=== PATIENT | male | born 1965 | race African-American/Black ===

== ENCOUNTER 2018-04-11 16:23 | Emergency (ER) | payer SELFPAY ==
[2018-04-11 16:30] VITALS: BP 166/103
--- NOTE | 2018-04-11 16:40 | ER Report ---
History and Physical Time Seen By MD: 16:41 Hx. of Stated Complaint: LOWER RIGHT BACK PAIN SHOOTING DOWN RIGHT LEG SINCE LAST WEDNESDAY. HPI/ROS CHIEF COMPLAINT: Back pain that radiates down the right leg HISTORY OF PRESENT ILLNESS: 53-year-old male patient presents to emergency room with complaint of back pain that radiates down the right leg. Patient states that he has been having this pain for approximately 9 days now. Patient states that he's recently moved from [place] and noted that his back started to hurt when he was moving. He states that he did the majority to move by himself. He states that it seems to have persisted. He did see a chiropractor here in town, who tried a manipulation as well as a herbal muscle relaxer. He states most relaxer seemed to help initially but has not helped since. Patient states that his pain seems to be worse when he is having a bowel movement in the morning. He denies having any fevers, chills, nausea, vomiting or diarrhea. Patient states he has some tingling to the back of the right leg. He denies having any numbness tingling to the foot today. He states the tingling seems to and around the knee. Patient states that ibuprofen seems to help. He states he's had this previously proximal like 20 years ago and saw a specialist who used a massager and in for 5 visits he was feeling much better. REVIEW OF SYSTEMS: Respiratory: No cough, no dyspnea. Cardiovascular: No chest pain, no palpitations. Gastrointestinal: No vomiting, no abdominal pain. Musculoskeletal: As noted above Allergies: Coded Allergies: No Known Drug Allergies (Unverified , 04/11/18) Home Meds Active Scripts Prednisone (PREDNISONE) 20 Mg Tablet, 40 MG PO DAILY, #8 TAB Prov:KENYON NINO 04/11/18 Hydrocodone Bit/Acetaminophen (HYDROCODON-ACETAMINOPHEN 5-325) 1 Each Tablet, 1 EACH PO Q4-6H PRN for PAIN, #12 TAB Prov:KENYON NINO 04/11/18 Cyclobenzaprine Hcl (CYCLOBENZAPRINE HCL) 10 Mg Tablet, 10 MG PO TID PRN for MUSCLE SPASMS, #15 TAB Prov:KENYON NINO 04/11/18 Past Medical/Surgical History Patient has a past medical history of psoriasis. Patient denies any surgical history. Reviewed Nurses Notes: Yes Constitutional Vital Sign - Last 24 Hours 04/11/18 04/11/18 04/11/18 04/11/18 16:29 16:30 16:38 16:53 Temp 98.0 Pulse 86 86 86 Resp 18 B/P (MAP) 166/103 166/103 (124) Pulse Ox 91 92 92 04/11/18 04/11/18 04/11/18 04/11/18 17:23 17:38 17:53 18:08 Pulse 81 96 80 81 Pulse Ox 93 95 91 91 04/11/18 04/11/18 04/11/18 04/11/18 18:20 18:35 18:50 19:05 Pulse 77 81 77 85 Pulse Ox 93 94 94 94 Physical Exam General Appearance: The patient is alert, has no immediate need for airway protection and no current signs of toxicity. Respiratory: Chest is non tender, lungs are clear to auscultation. Cardiac: regular rate and rhythm Gastrointestinal: Abdomen is soft and non tender, no masses, bowel sounds normal. Musculoskeletal: Neck: Neck is supple and non tender. Back: Patient does have some tenderness to the right side of the low back, pain seems to worse along the SI joint. Extremities have full range of motion and are non tender. Skin: No rashes or lesions. DIFFERENTIAL DIAGNOSIS: After history and physical exam differential diagnosis was considered for back pain including but not limited to muscular pain, herniated disc, spine fracture, intra-abdominal causes and urinary tract infection. Medical Decision Making EKG/Imaging Imaging LUMBAR SPINE 4 VIEWS INDICATION: Back pain for one week. No 2 new home last week. COMPARISON: None available FINDINGS: 4 views of the lumbar spine. There are 5 nonrib-bearing lumbar vertebral bodies. The vertebral bodies are aligned. No compression fractures, bony lesions or spondylolysis. Mild degenerative changes including disc space narrowing, osteophytes and facet arthropathy. This is more prominent the L5-S1 level. The endplates are maintained. Pedicles well seen. Soft tissues are unremarkable. IMPRESSION: Degenerative changes without acute abnormality. Report Dictated By: Keven Lazo at 04/11/2018 6:47 PM Report E-Signed By: Keven Lazo at 04/11/2018 6:49 PM SACROILIAC JOINTS 3 OR > VIEWS INDICATION: Pain. COMPARISON: None available FINDINGS: 3 views of the SI joints. SI joints are symmetric. No widening, narrowing, sclerosis or osteophytes are appreciated. Sacrum is intact without fracture or dislocation. No bony lesions. The visualized pelvis is intact. Soft tissues are unremarkable. IMPRESSION: Normal exam. Report Dictated By: Keven Lazo at 04/11/2018 6:49 PM Report E-Signed By: Keven Lazo at 04/11/2018 6:50 PM ED Course/Re-evaluation ED Course Patient was admitted to exam room, history and physical were obtained. Differential diagnoses were considered. On examination patient does have ten derness to the right side of the low back as well as down into the SI joint. X- rays done of the lumbar spine as well as the SI joints. X-rays showed no acute fractures, no subluxation. I discussed the findings with the patient. I believe he is having a flareup of his sciatica. We will go ahead and treat him with a limited supply of pain medication, prednisone and a muscle relaxer. Patient is to follow-up with his primary care provider in the next week. He is return to emergency room if condition worsens. I anticipate that we will see improvement of his symptoms within the next 1-2 days. Patient verbalized understanding and agreement with plan. Decision to Disposition Date: Apr 11, 2018 Decision to Disposition Time: 19:00 Depart Departure Latest Vital Signs Vital Signs Date Time Temp Pulse Resp B/P (MAP) Pulse Ox O2 Delivery O2 Flow Rate FiO2 04/11/18 19:05 85 94 04/11/18 16:30 166/103 (124) 04/11/18 16:29 98.0 18 Impression: Primary Impression: Sciatica Condition: Improved Disposition: HOME OR SELF-CARE New Scripts Prednisone (PREDNISONE) 20 Mg Tablet 40 MG PO DAILY, #8 TAB Prov: KENYON NINO 04/11/18 Hydrocodone Bit/Acetaminophen (HYDROCODON-ACETAMINOPHEN 5-325) 1 Each Tablet 1 EACH PO Q4-6H PRN for PAIN, #12 TAB Prov: KENYON NINO 04/11/18 Cyclobenzaprine Hcl (CYCLOBENZAPRINE HCL) 10 Mg Tablet 10 MG PO TID PRN for MUSCLE SPASMS, #15 TAB Prov: KENYON NINO 04/11/18 Patient Instructions: Sciatica (ED) Additional Instructions: Limit activity by pain. Get plenty of rest. Increase low impact aerobic activity; walking, to help loosen up those muscles. Take the medication as prescribed. Follow up with a primary care provider in the next 1-2 weeks. Return to the ER if condition worsens. Problem Qualifiers Primary Impression: Sciatica Laterality: right Qualified Codes: M54.31 - Sciatica, right side KENYON NINO Apr 11, 2018 16:40
--- NOTE | 2018-04-11 18:53 | RADIOLOGY IMAGING REPORT ---
FACILITY: [facility] PATIENT NAME: Austin Rosado : 1965 MR: [id number] V: [id number] EXAM DATE: ORDERING PHYSICIAN: KENYON NINO TECHNOLOGIST: Location: [facility] [place] Patient: Austin Rosado : 1965 Visit/Account:[id number] Date of Sevice: 04/11/2018 SACROILIAC JOINTS 3 OR > VIEWS INDICATION: Pain. COMPARISON: None available FINDINGS: 3 views of the SI joints. SI joints are symmetric. No widening, narrowing, sclerosis or o steophytes are appreciated. Sacrum is intact without fracture or dislocation. No bony lesions. The vi sualized pelvis is intact. Soft tissues are unremarkable. IMPRESSION: Normal exam. Report Dictated By: Keven Lazo at 04/11/2018 6:49 PM Report E-Signed By: Keven Lazo at 04/11/2018 6:50 PM WSN:[id number]
--- NOTE | 2018-04-11 18:53 | RADIOLOGY IMAGING REPORT ---
FACILITY: [facility] PATIENT NAME: Austin Rosado : 1965 MR: [id number] V: [id number] EXAM DATE: ORDERING PHYSICIAN: KENYON NINO TECHNOLOGIST: Location: [facility] [place] Patient: Austin Rosado : 1965 Visit/Account:[id number] Date of Sevice: 04/11/2018 LUMBAR SPINE 4 VIEWS INDICATION: Back pain for one week. No 2 new home last week. COMPARISON: None available FINDINGS: 4 views of the lumbar spine. There are 5 nonrib-bearing lumbar vertebral bodies. The vert ebral bodies are aligned. No compression fractures, bony lesions or spondylolysis. Mild degenerative changes including disc space narrowing, osteophytes and facet arthropathy. This is more prominent the L5-S1 level. The endplates are maintained. Pedicles well seen. Soft tissues are unremarkable. IMPRESSION: Degenerative changes without acute abnormality. Report Dictated By: Keven Lazo at 04/11/2018 6:47 PM Report E-Signed By: Keven Lazo at 04/11/2018 6:49 PM WSN:[id number]
[2018-04-11] MEDS ORDERED: HYDR-385 PO (18:57)
[2018-04-11] MEDS ORDERED: PRED20TA6 PO (18:57)
[2018-04-11] MEDS ORDERED: CYCL10TA29 PO (18:57)
[2018-04-11] MEDS ORDERED: predniSONE 20 MG TAB PO ONE (19:00)
[2018-04-11] MEDS ORDERED: CYCLOBENZAPRINE HCL 10 MG TH PO ONE (19:00)
[2018-04-11] MEDS ORDERED: ACET/HYDROC 5/325MG TH ER ONLY 2 TAB/BOTTLE PO ONE (19:00)
== END 2018-04-11 19:20 | disposition home or self-care (01) ==
LOC: ER 16:42
DX: M54.31 Sciatica, right side (principal)
CPT/HCPCS: 72120; 72202; 99284; J7512

== ENCOUNTER 2018-07-17 09:20 | Emergency (ER) | payer OTHER ==
[~2018-07-17 09:20] MED LIST: CYCL10TA29 PO; HYDR-385 PO; PRED20TA6 PO
--- NOTE | 2018-07-17 09:38 | ER Report ---
History and Physical Time Seen By MD: 09:32 Hx. of Stated Complaint: PT REPORTS SCIATIC NERVE PAIN X 2 WEEKS BUT CONTINUES TO GET WORSE. HPI/ROS CHIEF COMPLAINT: Low back pain with sciatica HISTORY OF PRESENT ILLNESS: Patient is a 53-year-old male who presents to the emergency department with complaint of lower back pain and right leg pain. Patient thinks that this is an exacerbation of sciatica. Patient is barely into [place] moving here and this past April does not have a primary care provider. Patient denies any new traumatic injury. He denies fevers or chills. He denies any retention or incontinence of urine or stool. He denies any saddle anesthesia. Allergies: Coded Allergies: No Known Drug Allergies (Unverified , 07/17/18) Home Meds Active Scripts Prednisone (PREDNISONE) 20 Mg Tablet, 20 MG PO QDAY for 5 Days, #5 TAB 0 Refills first dose on 07/18/18 then one daily until complete Prov:PEG BRITO MD 07/17/18 Methocarbamol (ROBAXIN-750) 750 Mg Tablet, 1500 MG PO TID for Muscle Relaxant, #30 TAB 0 Refills Prov:PEG BRITO MD 07/17/18 Hydrocodone Bit/Acetaminophen (HYDROCODON-ACETAMINOPHEN 5-325) 1 Each Tablet, 1 EACH PO Q4-6H PRN for PAIN, #15 TAB 0 Refills TAKE ONE TABLET BY MOUTH EVERY 4-6 HOURS NEEDED FOR PAIN Prov:PEG BRITO MD 07/17/18 Discontinued Scripts Prednisone (PREDNISONE) 20 Mg Tablet, 40 MG PO DAILY, #8 TAB Prov:KENYON NINO 04/11/18 Hydrocodone Bit/Acetaminophen (HYDROCODON-ACETAMINOPHEN 5-325) 1 Each Tablet, 1 EACH PO Q4-6H PRN for PAIN, #12 TAB Prov:KENYON NINO 04/11/18 Cyclobenzaprine Hcl (CYCLOBENZAPRINE HCL) 10 Mg Tablet, 10 MG PO TID PRN for MUSCLE SPASMS, #15 TAB Prov:KENYON NINO 04/11/18 Past Medical/Surgical History Sciatica Constitutional Vital Sign - Last 24 Hours 07/17/18 09:24 Temp 97.9 Pulse 95 Resp 18 B/P (MAP) 152/100 Pulse Ox 93 O2 Delivery Room Air Physical Exam General appearance: alert no distress. Back: Thoracic spine has no spinal or paraspinal tenderness to palpation. Lumbar spine has no spinal tenderness moderate paraspinal tenderness Gastroinal: Abdomen is soft, non tender, no masses.. Skin: No lesions and no rashes. Vascular: Normal capillary refill and pulses to feet. Neurological: Motor function: leg strength normal and symmetric for both legs Sensory function: normal for all leg dermatomes. Straight leg raise negative to 70 degrees. Reflexes normal bilaterally on legs. [ ] DIFFERENTIAL DIAGNOSIS: After history and physical exam differential diagnosis was considered for back pain including muscular strain, herniated disc, intra- abdominal and renal causes. Medical Decision Making ED Course/Re-evaluation ED Course 07/17/2018 9:39:11 am he shouldn't with sciatica flare. Plan will be IM Toradol oral prednisone and oral Robaxin. We'll send a prescription for short course of oral pain medication. At the [place] prescription index of was checked last prescription for controlled substance was April 2018 and no other scripts were noted. Decision to Disposition Date: Jul 17, 2018 Decision to Disposition Time: 09:39 Depart Departure Latest Vital Signs Vital Signs Date Time Temp Pulse Resp B/P (MAP) Pulse Ox O2 Delivery O2 Flow Rate FiO2 07/17/18 09:24 97.9 95 18 152/100 93 Room Air Impression: Primary Impression: Sciatica Condition: Improved Disposition: HOME OR SELF-CARE New Scripts Prednisone (PREDNISONE) 20 Mg Tablet 20 MG PO QDAY for 5 Days, #5 TAB 0 Refills first dose on 07/18/18 then one daily until complete Prov: PEG BRITO MD 07/17/18 Methocarbamol (ROBAXIN-750) 750 Mg Tablet 1500 MG PO TID for Muscle Relaxant, #30 TAB 0 Refills Prov: PGE BRITO MD 07/17/18 Hydrocodone Bit/Acetaminophen (HYDROCODON-ACETAMINOPHEN 5-325) 1 Each Tablet 1 EACH PO Q4-6H PRN for PAIN, #15 TAB 0 Refills TAKE ONE TABLET BY MOUTH EVERY 4-6 HOURS NEEDED FOR PAIN Prov: PEG BRITO MD 07/17/18 Patient Instructions: Sciatica (DC) Problem Qualifiers Primary Impression: Sciatica Laterality: right Qualified Codes: M54.31 - Sciatica, right side PEG BRITO MD Jul 17, 2018 09:38
[2018-07-17] MEDS ORDERED: METH-543 PO (09:41)
[2018-07-17] MEDS ORDERED: LOR5/325 PO (09:41)
[2018-07-17] MEDS ORDERED: PRED20TA6 PO (09:41)
[2018-07-17] MEDS: METHOCARBAMOL 500 MG TAB PO ONE (09:45)
[2018-07-17] MEDS: predniSONE 20 MG TAB PO ONE (09:45)
[2018-07-17] MEDS: KETOROLAC 60 MG/2 ML VIAL IM ONE (09:49)
[2018-07-17 09:50] VITALS: BP 141/90
== END 2018-07-17 09:55 | disposition home or self-care (01) ==
LOC: ER 09:35
DX: M54.31 Sciatica, right side (principal)
CPT/HCPCS: 96372; 99283; J1885; J7512

== ENCOUNTER 2018-08-11 14:09 | Emergency (ER) | payer OTHER ==
[~2018-08-11 14:09] MED LIST changes: +LOR5/325 PO; +METH-543 PO; +NAPR500T31 PO; +TRAM-420 PO
[2018-08-11 16:13] VITALS: BP 168/111
[2018-08-11] MEDS ORDERED: CYCL10TA29 PO (16:43)
[2018-08-11] MEDS ORDERED: PRED20TA6 PO (16:43)
[2018-08-11] MEDS ORDERED: methylPREDNIS SUCC 125 MG/2ML IM ONE (16:45)
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
[2018-08-11] MEDS ORDERED: HYDR-385 PO (16:48)
== END 2018-08-11 17:11 | disposition home or self-care (01) ==
LOC: ER 16:12
DX: M54.31 Sciatica, right side (principal)
CPT/HCPCS: 96372; 99283; J2930

== ENCOUNTER → 2018-08-22 | Outpatient (CLI) | payer OTHER ==
[~2018-08-22] MED LIST changes: +LISI-362 PO; +MELO-207 PO
[2018-08-22 09:35] LABS: PLATELET COUNT, AUTOMATED 280 K/uL (150-450)
[2018-08-22 09:49] LABS: LDL CHOLESTEROL 122 mg/dl
== END ==
LOC: LAB 09:12
PROVIDERS: ATTEND Internal Medicine
DX: M54.31 Sciatica, right side (principal); L40.9 Psoriasis, unspecified; I10 Essential (primary) hypertension; R73.9 Hyperglycemia, unspecified
CPT/HCPCS: 36415; 81001; 82040; 82247; 82310; 82374; 82435; 82465; 82565; 82947; 83036; 83718; 84075; 84132; 84153; 84155; 84295; 84443; 84450; 84460; 84478; 84520; 85025

== ENCOUNTER 2018-08-25 13:21 | Emergency (ER) | payer OTHER ==
--- NOTE | 2018-08-25 13:22 | ER Report ---
History and Physical Time Seen By MD: 13:22 HPI/ROS CHIEF COMPLAINT: Back pain and sciatica. HISTORY OF PRESENT ILLNESS: Patient is a 53-year-old male who moved to [place] this past has been seen approximately a half dozen times in the emergency department and also by his primary care provider for Z of sciatica that usually come on after a long plane ride or passing a hard stool. Patient is getting physical therapy which is helping. He states that he actually was pain-free this morning and was exercising. States later that morning he had a bowel movement and now is in severe pain again. Patient has had x-ray imaging of the back but no other studies. [place] prescription database was reviewed and patient had only prescriptions that were prescribed by either his primary care provider or provider from this emergency department. She denies saddle anesthesia. Reports constipation with bowel movements but no incontinence or retention of urine or stool. REVIEW OF SYSTEMS: Musculoskeletal: Back pain GI: Constipation Allergies: Coded Allergies: No Known Drug Allergies (Unverified , 08/11/18) Home Meds Active Scripts Oxycodone Hcl/Acetaminophen (PERCOCET 5-325 MG TABLET) 1 Each Tablet, 1 EACH PO Q4H for PAIN, #15 TAB 0 Refills Prov:PEG BRITO MD 08/25/18 Methocarbamol (ROBAXIN-750) 750 Mg Tablet, 1500 MG PO QID for Muscle Relaxant, #30 TAB 0 Refills Prov:PEG BRITO MD 08/25/18 Meloxicam (MELOXICAM) 15 Mg Tablet, 15 MG PO QDAY PRN for pain, #30 TAB 1 Refill Prov:FLOWER QUINTERO MD 08/22/18 Lisinopril (LISINOPRIL) 10 Mg Tablet, 10 MG PO QDAY, #30 TAB 3 Refills Prov:FLOWER QUINTERO MD 08/22/18 Cyclobenzaprine Hcl (CYCLOBENZAPRINE HCL) 10 Mg Tablet, 10 MG PO TID PRN for MUSCLE SPASMS, #30 TAB Prov:FLOWER QUINTERO MD 08/22/18 Reported Medications Hydrocodone Bit/Acetaminophen (HYDROCODON-ACETAMINOPHEN 5-325) 1 Each Tablet, 1 EACH PO Q4H, TAB 08/25/18 Discontinued Scripts Hydrocodone Bit/Acetaminophen (HYDROCODON-ACETAMINOPHEN 5-325) 1 Each Tablet, 1 EACH PO Q4-6H PRN for PAIN, #12 TAB Prov:KENYON NINO LIVESTOCK INSPECTOR 08/11/18 Prednisone (PREDNISONE) 20 Mg Tablet, 40 MG PO DAILY, #10 TAB Prov:KENYON NINO LIVESTOCK INSPECTOR 08/11/18 Past Medical/Surgical History Sciatica Smoking Status: Former Smoker Exposure to Second Hand Smoke?: No Constitutional Vital Sign - Last 24 Hours 08/25/18 13:25 Temp 97.7 Pulse 100 Resp 22 B/P (MAP) 147/96 Pulse Ox 95 O2 Delivery Room Air Physical Exam General appearance: Patient appears uncomfortable; prefers to lay on left side Back: Thoracic spine has no spinal or paraspinal tenderness to palpation. Lumbar spine has no spinal tenderness moderateparaspinal tenderness Gastroinal: Abdomen is soft, non tender, no masses.. Skin: No lesions and no rashes. [ ] DIFFERENTIAL DIAGNOSIS: After history and physical exam differential diagnosis was considered for back pain including muscular strain, herniated disc, intra- abdominal and renal causes. Medical Decision Making ED Course/Re-evaluation ED Course 08/25/2018 2:02:36 pm he had initially discussed with patient about obtaining an MRI at this point since his symptoms seem to be recurring. Feel he should also follow up with an orthopedist so they can evaluate him for his back pain. Patient states this time he would rather follow up with his primary care provider to get the MRI. I will prescribe a short course of oxycodone and Robaxin Decision to Disposition Date: Aug 25, 2018 Decision to Disposition Time: 14:03 Depart Departure Latest Vital Signs Vital Signs Date Time Temp Pulse Resp B/P (MAP) Pulse Ox O2 Delivery O2 Flow Rate FiO2 08/25/18 13:25 97.7 100 22 147/96 95 Room Air Impression: Primary Impression: Sciatica Condition: Improved Disposition: HOME OR SELF-CARE Referrals: FLOWER QUINTERO MD (PCP) Call to schedule a follow-up appointment with your primary care provider to arrange for possible outpatient MRI of the lumbar spine AUGUSTIN ATKINSON MD Call to schedule an appointment for persistent and recurring sciatica. New Scripts Prednisone (PREDNISONE) 20 Mg Tablet 60 MG PO QDAY for 5 Days, #15 TAB 0 Refills Prov: PEG BRITO MD 08/25/18 Oxycodone Hcl/Acetaminophen (PERCOCET 5-325 MG TABLET) 1 Each Tablet 1 EACH PO Q4H for PAIN, #15 TAB 0 Refills Prov: PEG BRITO MD 08/25/18 Methocarbamol (ROBAXIN-750) 750 Mg Tablet 1500 MG PO QID for Muscle Relaxant, #30 TAB 0 Refills Prov: EPG BRITO MD 08/25/18 Patient Instructions: Sciatica (GEN) Problem Qualifiers Primary Impression: Sciatica Laterality: right Qualified Codes: M54.31 - Sciatica, right side PEG BRITO MD Aug 25, 2018 13:22
[2018-08-25] MEDS ORDERED: HYDR-385 PO (13:32)
[2018-08-25] MEDS ORDERED: ORPHENADRINE 60MG/2ML INJ IM ONE (13:50)
[2018-08-25] MEDS ORDERED: KETOROLAC 60 MG/2 ML VIAL IM ONE (13:50)
[2018-08-25 14:00] VITALS: BP 126/80
[2018-08-25] MEDS ORDERED: OXYC-865 PO (14:06)
[2018-08-25] MEDS ORDERED: METH-543 PO (14:06)
[2018-08-25] MEDS ORDERED: PRED20TA6 PO (14:23)
== END 2018-08-25 14:25 | disposition home or self-care (01) ==
LOC: ER 13:43
DX: M54.31 Sciatica, right side (principal)
CPT/HCPCS: 96372; 99284; J1885; J2360

== ENCOUNTER 2018-08-31 08:15 | Outpatient (RCR) | payer OTHER ==
--- NOTE | 2018-08-17 11:09 | PT INITIAL EVALUATION ---
MEDICAL DIAGNOSIS: Sciatica TREATMENT DIAGNOSIS: same, LBP with radiating pain DATE OF ONSET: 04/09/18 SUBJECTIVE: Austin Rosado presents to physical therapy with complaints of "sciatica" pain (R side) that started in April 2018 following his move to [place], [place] from [place], [place]. He reports that the pain started after lifting and twisting after the move. He reports that he feels like the pain gets better and then get worse. He reports that it feels worse with sitting, rising, standing, and better with bending and walking. He rates his current LBP with radiating to R buttock areas to be 2/10. He reports that he had x-rays in April 2018. He denies any surgery or recent accidents. Pain location is LBP L4-5 radiating to R buttock and described as . Pain scale is 2 on a ten point pain scale. REHAB PROBLEM LIST: Increased Pain Decreased ROM Decreased Strength Decreased Endurance Decreased Function Decreased Mobility Decreased Gait PREVIOUS MEDICAL HISTORY: See EMR OCCUPATION: Works at [employer] OBJECTIVE: Posture: He demonstrates forward head, B rounded shoulders, and reduced lordosis. He does not demonstrate a lateral shift. ROM: Trunk AROM: flexion: NIL with muscular end feel. extension: NIL with pain returning to neutral. Side gliding R: minimal restriction with painful end feel. Side gliding L: major restriction with stuck feeling. Strength: B LE's: 5/5 B Palpation: TTP: LBP L4-5 radiating to R buttock Special Tests: Repeated extension: pain during the test with abolished pain following the test. He did demonstrate increased trunk AROM following. Repeated flexion: pain during the test with increased pain following and decreased trunk AROM following. Mobility: Independent Gait: He demonstrated antalgic gait, normal B step lengths, normal B step clearance, normal pelvic rotation, and normal B UE movement. ASSESSMENT: Austin will benefit from skilled physical therapy addressing the listed impairments to improve function and QOL. Following the examination, his provisional examination is a posterior derangement that responded to extension based principles. He is independent with his home specific exercise. Short Term Goals 2 weeks; Pt will demonstrate directional preference to improve function and QOL. 4 weeks: Pt will demonstrate abolished low back pain to improve function and QOL. 6 weeks: Pt will demonstrate abolished low back pain and abolished radiating pain and return to prior level of function to improve function and QOL. Patient's Goals get rid of the pain PLAN: Patient to be seen for Manual Therapy/STM/MET Strengthening/condition Range of Motion Spinal Stabilization Work Hardening/Cond Stretching Neuromuscular Re-ed Closed Chain Program Posture/Body mechanics Gait Trg/Balance Trg Home Exercise Program Therapeutic Activities 2x/Week for 6 Weeks If you have any questions, comments, or concerns about this report or plan, please contact me at . Thank you, Good Granados, PT, DPT MTDD
[~2018-08-31 08:15] MED LIST changes: +OXYC-865 PO
[2018-08-31] MEDS ORDERED: CYCL10TA29 PO (09:13)
--- NOTE | 2018-08-31 10:26 | PT PLAN OF CARE ---
Physician: RAFFAELE Blackburn Patient is being seen: 2x/week Therapist: Good Granados, PT, DPT Medical Diagnosis: Sciatica Treatment Diagnosis: same, LBP with radiating pain Date of Onset: 04/09/18 Date of Initial Evaluation: 08/16/18 Date patient was last seen: 08/31/18 Number of treatments: 6 Number of cancellations/No shows: 0 INTERVENTIONS: Manual Therapy/STM/MET Strengthening/condition Range of Motion Spinal Stabilization Work Hardening/Cond Stretching Neuromuscular Re-ed Closed Chain Program Posture/Body mechanics Gait Trg/Balance Trg Home Exercise Program Therapeutic Activities GOALS: 2 weeks; Pt will demonstrate directional preference to improve function and QOL. 4 weeks: Pt will demonstrate abolished low back pain to improve function and QOL. 6 weeks: Pt will demonstrate abolished low back pain and abolished radiating pain and return to prior level of function to improve function and QOL. PATIENT'S GOAL: get rid of the pain Status of Patient's Goals: Progressing Patient Compliance: Good Prognosis: Excellent Reasons for continuing therapy: This is a discharge note for Austin Rosado. He reports that he feels like he is going to have a bowel movement, which has resulted in 2-3/10 R sided posterior buttock pain. He states that the has been performing his specific exercise and states that it helps unless he has a bowel movement coming and then nothing helps with the R sided posterior buttock pain. Since his pain continues to come and go, we decided to increase the forces into extension to see if it abolishes his pain or exposes a lateral by making his pain worse. Before performing the increased forces with a mobilization belt, he was educated that this could make the pain worse and peripheralize down the R LE and if it did let me know and we will stop since that would mean that we exposed a lateral. After doing 5 rounds of extension with manual pressure by the mobilization belt, he started to have pain radiating from his R buttock to his R foot, which demonstrates as peripheralized pain and exposed a lateral. Therefore, the specific exercise (lumbar extension) that he was performing was helping in his recovery but with the injury being posterior lateral it was not fully resolving the issues and that is the reason that it continues to come back after increased straining following a bowel movement. By exposing the lateral today, we would be able to address it (since we know the location) and based on the research we would be able to completely eliminate the pain quickly within 2 weeks if he performed his specific exercise as prescribed. However, after we exposed the posterior lateral injury, he stated that he was done since he was worse despite my greatest efforts to educate him that we found the injury and we can resolve it with the correct specific exercise and instead due to increased pain he walked out of the clinic. I told him to follow up with his primary physician and go that route if he does not want to go the physical therapy route since we use movement to figure out the location so that we can prescribe the correct specific exercise for the correct problem. Based on what I saw today, he has a good prognosis and does demonstrate treatable mechanical pain and he was educated well on his injury. It is unfortunate that he decided to do this. I will inform his primary physician (Dr. Franco) of the circumstance. As a result, we will discharge from PT and refer back to physician. Posture: He demonstrates forward head, B rounded shoulders, and reduced lordosis. He does not demonstrate a lateral shift. ROM: Trunk AROM: flexion: NIL with muscular end feel. extension: NIL with pain returning to neutral. Side gliding R: NIL with muscular end feel. Side gliding L: NIL with muscular end feel Strength: B LE's: 5/5 B Palpation: TTP: LBP L4-5 radiating to R buttock Mobility: Independent If you have any questions, please contact me at [phone]. Thank you, Good Granados, PT, DPT SLADED
== END 2018-08-31 11:17 | disposition home or self-care (01) ==
LOC: PT 08:15
PROVIDERS: ATTEND Nurse Practitioner Family
DX: M54.41 Lumbago with sciatica, right side (principal)
CPT/HCPCS: 97162

== ENCOUNTER 2019-01-24 08:44 | Emergency (ER) | payer OTHER ==
[~2019-01-24 08:44] MED LIST changes: +LISI20TA29 PO; +TRIA15CR40 TP
--- NOTE | 2019-01-24 08:48 | ER Report ---
History and Physical Time Seen By MD: 08:46 HPI/ROS CHIEF COMPLAINT: Right-sided buttock pain HISTORY OF PRESENT ILLNESS: Patient is a 53-year-old male here with complaints of several day history of right-sided buttock pain consistent with his prior episodes of sciatica. Patient reports that the pain is localized in the buttock and extends down to the proximal thigh. Denies motor weakness, paresthesias, bowel or bladder incontinence, saddle anesthesia, urinary retention. Denies recent trauma or midline back pain. Patient is otherwise well-appearing and in no acute distress. REVIEW OF SYSTEMS: Constitutional: No fever, no chills. Eyes: No discharge. ENT: No sore throat. Cardiovascular: No chest pain, no palpitations. Respiratory: No cough, no shortness of breath. Gastrointestinal: No abdominal pain, no vomiting. Genitourinary: No hematuria. Musculoskeletal: Right sided buttock pain tender on palpation Skin: No rashes. Neurological: No paresthesias or motor weakness in the distal extremities Allergies: Coded Allergies: No Known Drug Allergies (Unverified , 01/24/19) Home Meds Active Scripts Lisinopril (LISINOPRIL) 20 Mg Tablet, 20 MG PO BID, #60 TAB 6 Refills Prov:FLOWER QUINTERO MD 12/15/18 Cyclobenzaprine Hcl (CYCLOBENZAPRINE HCL) 10 Mg Tablet, 10 MG PO TID PRN for MUSCLE SPASMS, #30 TAB 1 Refill Prov:FLOWER QUINTERO MD 09/05/18 Meloxicam (MELOXICAM) 15 Mg Tablet, 15 MG PO QDAY PRN for pain, #30 TAB 2 Refills Prov:FLOWER QUINTERO MD 09/05/18 Discontinued Scripts Triamcinolone Acetonide 0.1% Cr 15 Gm Tube (TRIAMCINOLONE ACETONIDE 0.1% CREAM) 15 Gm Cream..g., 60 GM TP BID, #60 GM Prov:FLOWER QUINTERO MD 12/15/18 Smoking Status: Former Smoker Exposure to Second Hand Smoke?: No Constitutional Vital Sign - Last 24 Hours 01/24/19 08:47 Temp 97.8 Pulse 104 Resp 20 B/P (MAP) 176/108 Pulse Ox 92 O2 Delivery Room Air Physical Exam General Appearance: The patient is alert, has no immediate need for airway protection and no signs of toxicity. No acute distress Neurological: Neurovascular exam intact in the distal lower extremities, right patellar reflexes intact Skin: Warm and dry, no rashes. Musculoskeletal: Tenderness on palpation of the right buttock and proximal thigh on the lateral aspect DIFFERENTIAL DIAGNOSIS: After history and physical exam differential diagnosis was considered for back pain including but not limited to muscular pain, herniated disc, spine fracture, intra-abdominal causes and urinary tract infection. Sciatica Medical Decision Making ED Course/Re-evaluation ED Course Patient is a 53-year-old male here with complaints of right-sided buttock pain consistent with his prior episodes of sciatica with no neurological deficits, saddle anesthesia, bowel or bladder incontinence, urinary retention. Denies recent trauma. Trigger point injection was administered and 2. Tenderness in the right lateral buttock. Patient was given 60 mg of prednisone starting a 5 day burst therapy course. Patient reports that he is taking meloxi cam and he was recommended to continue this course. Return cautions provided. PCP follow-up recommended. Decision to Disposition Date: Jan 24, 2019 Decision to Disposition Time: 09:24 Depart Departure Latest Vital Signs Vital Signs Date Time Temp Pulse Resp B/P (MAP) Pulse Ox O2 Delivery O2 Flow Rate FiO2 01/24/19 08:47 97.8 104 20 176/108 92 Room Air Impression: Primary Impression: Sciatica Condition: Improved Disposition: HOME OR SELF-CARE Referrals: FLOWER QUINTERO MD (PCP) New Scripts Prednisone (PREDNISONE) 50 Mg Tablet 50 MG PO QDAY for 4 Days, #4 TAB Prov: NIURKA GOLDBERG DO 01/24/19 Patient Instructions: Sciatica (DC) Additional Instructions: Please take prednisone 50 mg 1 time daily for the next 4 days. Please continue your home medications as prescribed. Please return promptly if he develops bowel or bladder incontinence, urinary retention, motor weakness, numbness. Please follow-up with your family doctor in the next 3-5 days for follow-up care. NIURKA GOLDBERG DO Jan 24, 2019 08:48
[2019-01-24 09:00] VITALS: BP 143/97
[2019-01-24] MEDS ORDERED: predniSONE 20 MG TAB PO ONE (09:10)
[2019-01-24] MEDS ORDERED: methylPREDNIS ACE 40MG/ML VIAL IM ONLY ONE (09:10)
[2019-01-24] MEDS ORDERED: PRED50TA22 PO (09:26)
[2019-01-25] MEDS ORDERED: CYCL10TA29 PO (15:27)
== END 2019-01-24 09:31 | disposition home or self-care (01) ==
LOC: ER 08:52
DX: M54.31 Sciatica, right side (principal)
CPT/HCPCS: 20552; 96372; 99284; J1030; J7512; 99283

== ENCOUNTER 2019-03-18 10:20 | Emergency (ER) | payer OTHER ==
[~2019-03-18 10:20] MED LIST changes: +CLOB15OI16 TP; +CLOB50SO11 TP; +HYDR15CR4 TP; +PRED50TA22 PO
--- NOTE | 2019-03-18 10:22 | ER Report ---
History and Physical Time Seen By MD: 10:18 HPI/ROS CHIEF COMPLAINT: Back pain HISTORY OF PRESENT ILLNESS: The patient is a 54-year-old male who presents with a flare of his sciatica on the right side. He denies fevers or chills denies any injury. Denies any saddle anesthesia or difficulty with urination or defecation. He denies chest pain or shortness of breath denies abdominal pain. Pain is made worse by moving but it still present at rest. He has tried [id number] medications and symptomatic treatment such as heat and ice without significant relief of pain. For this reason he presents to the emergency department for evaluation. REVIEW OF SYSTEMS: Respiratory: No cough, no dyspnea. Cardiovascular: No chest pain, no palpitations. Gastrointestinal: No vomiting, no abdominal pain. Musculoskeletal: Right-sided back pain and sciatic pain Allergies: Coded Allergies: No Known Drug Allergies (Unverified , 03/18/19) Home Meds Active Scripts Methocarbamol (ROBAXIN-750) 750 Mg Tablet, 1500 MG PO QID for Muscle Relaxant, #20 TAB 0 Refills Prov:PEG BRITO MD 03/18/19 Prednisone (PREDNISONE) 20 Mg Tablet, 20 MG PO QDAY for 5 Days, #5 TAB 0 Refills Prov:PEG BRITO MD 03/18/19 Oxycodone Hcl/Acetaminophen (PERCOCET 5-325 MG TABLET) 1 Each Tablet, 1 EACH PO Q4H for PAIN, #20 TAB 0 Refills Prov:PEG BRITO MD 03/18/19 Cyclobenzaprine Hcl (CYCLOBENZAPRINE HCL) 10 Mg Tablet, 10 MG PO TID PRN for MUSCLE SPASMS, #30 TAB 0 Refills Prov:FLOWER QUINTERO MD 01/25/19 Lisinopril (LISINOPRIL) 20 Mg Tablet, 20 MG PO BID, #60 TAB 6 Refills Prov:FLOWER QUINTERO MD 12/15/18 Meloxicam (MELOXICAM) 15 Mg Tablet, 15 MG PO QDAY PRN for pain, #30 TAB 2 Refills Prov:FLOWER QUINTERO MD 09/05/18 Discontinued Scripts Hydrocortisone Valerate 0.2% 15 Gm Cream (HYDROCORTISONE VALERATE 0.2% 15 GM CREAM) 15 Gm Cream..g., 1 CAL TP BID for 30 Days, #30 GM 1 Refill Apply to face twice a day for 7 days to control scale. Prov:ROSA ISELA BALLARD NPC 03/09/19 Clobetasol Propionate 0.05% Solution (CLOBETASOL PROPIONATE 0.05% SOLUTION) 50 Ml Solution, 1 CAL TP BID for 30 Days, #1 BOT 1 Refill Prov:ROSA ISELA BALLARD NPC 03/09/19 Clobetasol Propionate (CLOBETASOL PROPIONATE) 15 Gm Oint...g., 1 CAL TP BID for 30 Days, #30 G 1 Refill Apply to legs and arms twice a day as needed to control scale. Do not use on face neck, underarms, or groin. Prov:ROSA ISELA BALLARD NPC 03/09/19 Prednisone (PREDNISONE) 50 Mg Tablet, 50 MG PO QDAY for 4 Days, #4 TAB Prov:NIURKA GOLDBERG DO 01/24/19 Past Medical/Surgical History Sciatica Smoking Status: Former Smoker Exposure to Second Hand Smoke?: No Constitutional Vital Sign - Last 24 Hours 03/18/19 03/18/19 03/18/19 10:24 10:30 10:45 Temp 97.6 Pulse 59 87 Resp 20 B/P (MAP) 144/103 120/73 (89) 126/87 (100) Pulse Ox 96 93 O2 Delivery Room Air Physical Exam General appearance: alert no distress. Back: Thoracic spine has no spinal or paraspinal tenderness to palpation. Lumbar spine has no spinal tenderness moderateparaspinal tenderness Gastroinal: Abdomen is soft, non tender, no masses.. Skin: No lesions and no rashes. Vascular: Normal capillary refill and pulses to feet. Neurological: Motor function: leg strength normal and symmetric for both legs Sensory function: normal for all leg dermatomes. Straight leg raise negative to 70 degrees. Reflexes normal bilaterally on legs. DIFFERENTIAL DIAGNOSIS: After history and physical exam differential diagnosis was considered for back pain including muscular strain, herniated disc, intra- abdominal and renal causes. Medical Decision Making ED Course/Re-evaluation ED Course Patient with sciatic flare. Plan will be a trigger point injection along with a prescription for pain medicine muscle relaxants. After verbal consent was obtained patient's was placed in the left lateral recumbent position. Trigger point injection was done to the right gluteal area at maximal point tenderness. 2 mL of 0.5% proparacaine was injected without complication. Decision to Disposition Date: Mar 18, 2019 Decision to Disposition Time: 10:53 Depart Departure Latest Vital Signs Vital Signs Date Time Temp Pulse Resp B/P (MAP) Pulse Ox O2 Delivery O2 Flow Rate FiO2 03/18/19 10:45 126/87 (100) 03/18/19 10:30 87 93 03/18/19 10:24 97.6 20 Room Air Impression: Primary Impression: Sciatica Condition: Improved Disposition: HOME OR SELF-CARE Referrals: FLOWER QUINTERO MD (PCP) New Scripts Methocarbamol (ROBAXIN-750) 750 Mg Tablet 1500 MG PO QID for Muscle Relaxant, #20 TAB 0 Refills Prov: PEG BRITO MD 03/18/19 Prednisone (PREDNISONE) 20 Mg Tablet 20 MG PO QDAY for 5 Days, #5 TAB 0 Refills Prov: PEG BRITO MD 03/18/19 Oxycodone Hcl/Acetaminophen (PERCOCET 5-325 MG TABLET) 1 Each Tablet 1 EACH PO Q4H for PAIN, #20 TAB 0 Refills Prov: PEG BRITO MD 03/18/19 Patient Instructions: Sciatica (ED) Problem Qualifiers Primary Impression: Sciatica Laterality: right Qualified Codes: M54.31 - Sciatica, right side PEG BRITO MD Mar 18, 2019 10:22
[2019-03-18 10:45] VITALS: BP 126/87
[2019-03-18] MEDS ORDERED: PRED20TA6 PO (10:54)
[2019-03-18] MEDS ORDERED: METH-543 PO (10:54)
[2019-03-18] MEDS ORDERED: OXYC-865 PO (10:54)
== END 2019-03-18 11:04 | disposition home or self-care (01) ==
LOC: ER 10:26
DX: M54.31 Sciatica, right side (principal)
CPT/HCPCS: 99283